=== PATIENT | male | born 1935 | race Caucasian/White ===

== ENCOUNTER 2019-06-30 16:54 | Emergency (ER) | payer MEDICARE ==
[~2019-06-30] VITALS: Ht 185.4 cm; Wt 90.5 kg
[2019-06-30 17:01] VITALS: BP 164/82
[2019-06-30] MEDS ORDERED: acetaminophen 325mg tablet PO ONE (17:25)
== END 2019-06-30 18:12 | disposition home or self-care (01) ==
LOC: ER 16:55
DX: M25.512 Pain in left shoulder (principal); M54.6 Pain in thoracic spine; W18.30XA Fall on same level, unspecified, initial encounter; Y93.89 Activity, other specified; Y92.89 Other specified places as the place of occurrence of the external cause; Y99.9 Unspecified external cause status
CPT/HCPCS: 72074; 73030; 99283

== ENCOUNTER 2022-11-22 12:23 | Emergency (ER) | payer MEDICARE ==
[~2022-11-22] VITALS: Ht 188 cm; Wt 90.5 kg
[2022-11-22 12:46] VITALS: BP 157/104
[2022-11-22] MEDS ORDERED: LIDOcaine 1% W/epiNEPHrine 1:100,000 20ml vial SQ ONE (13:15)
== END 2022-11-22 14:52 | disposition home or self-care (01) ==
LOC: ER 12:23
DX: S61.215A Laceration without foreign body of left ring finger without damage to nail, initial encounter (principal); X58.XXXA Exposure to other specified factors, initial encounter; Y93.89 Activity, other specified; Y92.89 Other specified places as the place of occurrence of the external cause; Y99.8 Other external cause status
CPT/HCPCS: 12002; 99282; A6222; A6449

== ENCOUNTER 2022-12-03 13:48 | Emergency (ER) | payer OTHER, MEDICARE ==
[~2022-12-03] VITALS: Ht 188 cm; Wt 90.9 kg
[2022-12-03 14:05] VITALS: BP 109/68
[2022-12-03] MEDS ORDERED: bacitracin 15gm ointment TP ONE (16:10)
== END 2022-12-03 16:24 | disposition home or self-care (01) ==
LOC: ER 13:49
DX: Z48.00 Encounter for change or removal of nonsurgical wound dressing (principal)
CPT/HCPCS: 93005; 99283